=== PATIENT | male | born 1955 | race Caucasian/White ===

== ENCOUNTER 2017-10-10 19:44 | Inpatient (IN) | payer MEDICAID ==
--- NOTE | 2017-10-10 19:56 | ED Physician Chart ---
ED Chief Complaint/HPI - Patient Information Date Seen:: 10/10/17 Time Seen:: 19:40 Chief Complaint:: hematuria History of Present Illness:: Blood was noted in the patient's Iverson bag at 1500 today. Patient had a Iverson catheter placed 5 days ago apparently for inability to urinate secondary to benign prostatic hypertrophy. Historian:: Patient Review:: Nurse's Note Reviewed ED Review of Systems - Review of Systems General/Constitutional: No fever, No chills Skin: No skin lesions Head: No headache Eyes: No loss of vision ENT: No earache Neck: No neck pain, No swelling Cardio Vascular: No chest pain, No palpitations Pulmonary: No SOB GI: No nausea, No vomiting, No diarrhea G/U: Hematuria Musculoskeletal: No bone or joint pain Endocrine: No polyuria Psychiatric: No prior psych history, No depression ED Past Medical History - Past Medical History Past Medical History: HTN, DM, Dyslipidemia, Other (benign prostatic hypertrophy ; hyperlipidemia; chronic low back pain; cardiac arrhythmia) Family History: Heart disease, Diabetes [place] Social History: Non Smoker, Alcohol (occasional alcohol only) Surgical History: other (left hand) Psychiatricy History: None Medication: Reviewed Family Medical History - Family Member Mother Ethnicity: Non- ED Physical Exam - Physical Examination General/Constitutional: Awake, Well-developed, well-nourished, Alert, No distress Head: Atraumatic Eyes: Lids, conjuctiva normal, PERRL Skin: Nl inspection ENMT: External ears, nose nl Neck: No nuchal rigidity Respiratory: Nl effort/Exclusion, Clear to Auscultation Other Cardio Vascular comments:: Irregularly irregular rhythm GI: No tenderness/rebounding/guarding, No organomegaly, No hernia : No CVA tenderness Other comments:: Translucent red urine and Iverson collection bag; clear urine in tubing Extremities: Normal digits & nails Neuro/Psych: Mood normal, No focal deficits Misc: No paraspinal tenderness ED Labs/Radiology/EKG Results - Lab Results Results: Laboratory Results - last 24 hr 10/10/17 10/10/17 10/10/17 20:04 20:04 20:04 WBC 9.1 RBC 3.28 L Hgb 9.7 L Hct 28.7 L MCV 87.7 MCH 29.6 MCHC Differential 33.7 RDW 13.3 Plt Count 441 H MPV 7.1 Neutrophils % 64.4 Lymphocytes % 19.5 L Monocytes % 8.9 Eosinophils % 6.5 H Basophils % 0.7 PT 10.2 INR 0.98 PTT (Actin FS) 24.4 L Sodium 135 L Potassium 4.2 Chloride 104 Carbon Dioxide 23.8 Anion Gap 11.4 BUN 25 Creatinine 1.1 Est GFR ( Amer) > 60.0 Est GFR (Non-Af Amer) > 60.0 BUN/Creatinine Ratio 22.7 Glucose 138 H Calcium 8.7 Urine Source Urine Color Urine Clarity Urine pH Ur Specific [place] Urine Protein Urine Glucose (UA) Urine Ketones Urine Blood Urine Nitrate Urine Bilirubin Urine Urobilinogen Ur Leukocyte Esterase Urine RBC Urine WBC Ur Epithelial Cells Urine Bacteria 10/10/17 20:40 WBC RBC Hgb Hct MCV MCH MCHC Differential RDW Plt Count MPV Neutrophils % Lymphocytes % Monocytes % Eosinophils % Basophils % PT INR PTT (Actin FS) Sodium Potassium Chloride Carbon Dioxide Anion Gap BUN Creatinine Est GFR ( Amer) Est GFR (Non-Af Amer) BUN/Creatinine Ratio Glucose Calcium Urine Source [place] Urine Color RED Urine Clarity CLOUDY Urine pH 6.5 Ur Specific [place] 1.015 Urine Protein 30 H Urine Glucose (UA) NEGATIVE Urine Ketones NEGATIVE Urine Blood LARGE H Urine Nitrate NEGATIVE Urine Bilirubin NEGATIVE Urine Urobilinogen 0.2 Ur Leukocyte Esterase TRACE H Urine RBC >100 H Urine WBC 0-2 Ur Epithelial Cells RARE Urine Bacteria OCCASIONAL - EKG Interpretations Rate & Rhythm: normal sinus rhythm with a rate of 98 [place]: normal Comments:: unifocal PVCs ED Assessment - Assessment General Assessment: Since the urine was clearing (red urine in the bag and clear urine in the tubing) it appears that the hematuria may have been secondary to trauma on the Iverson catheter but patient denies any such trauma ED Septic Shock - . Is Septic Shock (SBP<90, OR Lactate>4 mmol\L) present?: No ED Reassessment (Disposition) - Reassessment Reassessment Condition:: Unchanged - Diagnosis Diagnosis:: Anemia; hematuria; benign prostatic hypertrophy - Patient Disposition Admitted to:: Med/Surg Spoke to:: Rach Novak Admitting Medical Physician:: Rach Novak Condition at Disposition:: Stable, Unchanged
[2017-10-10 20:24] LABS: % BASOPHILS 0.7 % (0.0-2.0); % EOSINOPHILS 6.5 % (0.0-5.0); % LYMPHOCYTES 19.5 % (20.0-50.0); % MONOCYTES 8.9 % (2.0-10.0); % NEUTROPHILS 64.4 % (40.0-80.0); BASOPHILE ABSOLUTE 0.1 Th/cumm (0-0.2); EOSINOPHILE ABSOLUTE 0.6 Th/cmm (0.1-0.4); HEMATOCRIT 28.7 % (41.0-60); HEMOGLOBIN 9.7 gm/dL (12-16); LYMPHOCYTE ABSOLUTE 1.8 Th/cmm (1.5-3.0); MEAN CELL VOLUME 87.7 fl (80-99); MEAN CORPUSCULAR HEMOGLOBIN 29.6 pg (26.0-30.0); MEAN CORPUSCULAR HGB CONC 33.7 pg (28.0-36.0); MEAN PLATELET VOLUME 7.1 fl; MONOCYTE ABSOLUTE 0.8 Th/cmm (0.3-1.0); NEUTROPHILE ABSOLUTE 5.8 Th/cmm (1.8-8.0); PLATELET COUNT 441 Th/cmm (150-400); RED BLOOD COUNT 3.28 Mil/cmm (4.30-5.70); RED CELL DISTRIBUTION WIDTH 13.3 % (11.5-20.0); WHITE BLOOD COUNT 9.1 Th/cmm (4.8-10.8)
[2017-10-10 20:30] LABS: INR 0.98 (0.5-1.4); PROTHROMBIN TIME (TEST) 10.2 SECONDS (9.5-11.5)
[2017-10-10 20:31] LABS: ANION GAP 11.4 (7.0-16.0); BUN - UREA NITROGEN 25 mg/dL (7-25); CALCIUM SERUM 8.7 mg/dL (8.6-10.3); CARBON DIOXIDE 23.8 mEq/L (21.0-31.0); CHLORIDE 104 mEq/L (98-107); CREATININE - SERUM 1.1 mg/dL (0.7-1.3); GFR AFRICAN-AMERICAN > 60.0 ml/min (>90); GFR NON AFRICAN-AMERICAN > 60.0 ml/min; GLUCOSE 138 mg/dL (70-105); POTASSIUM SERUM 4.2 mEq/L (3.5-5.1); SODIUM SERUM 135 mEq/L (136-145)
[2017-10-10 20:50] LABS: URINE MICROSCOPIC INDICATED? YES; URINE SOURCE FOLEY PORT
[2017-10-10 20:58] LABS: URINE BILIRUBIN NEGATIVE (NEGATIVE); URINE BLOOD LARGE (NEGATIVE); URINE GLUCOSE (UA) NEGATIVE (NEGATIVE); URINE KETONE NEGATIVE (NEGATIVE); URINE LEUKOCYTE ESTERASE TRACE (NEGATIVE); URINE NITRATE NEGATIVE (NEGATIVE); URINE PH 6.5 (4.6 - 8.0); URINE PROTEIN 30 mg/dL (NEGATIVE); URINE UROBILINOGEN 0.2 E.U./dL (0.2 - 1.0)
[2017-10-10 21:04] LABS: URINE CLARITY CLOUDY (CLEAR); URINE COLOR RED; URINE RBC >100 /hpf (0-5); URINE WBC 0-2 /hpf (0-5)
[2017-10-10 21:05] LABS: URINE BACTERIA OCCASIONAL /hpf (NONE SEEN); URINE EPITHELIAL CELLS RARE /lpf (FEW)
[2017-10-10] MEDS: Sodium Chloride 0.9% 1,000 ML IV SCH (21:42)
[2017-10-10] MEDS ORDERED: Magnesium Hydroxide (MOM) 30 mL UDC PO PRN (22:48)
[2017-10-11] MEDS: Pantoprazole 40 mg EC Tab PO SCH ×2 (06:45→16:50)
[2017-10-11] MEDS ORDERED: VTE Chemical Prophylaxis Screen/Admission MC PRN (08:00)
[2017-10-11] MEDS: Multivitamin w/ Minerals Tab PO SCH (08:39)
[2017-10-11] MEDS: Sodium Chloride 0.9% 1,000 ML IV SCH ×2 (08:40→22:22)
--- NOTE | 2017-10-11 18:21 | Consultation ---
DATE OF CONSULTATION: 10/11/2017 REASON FOR CONSULTATION: Seen for urinary retention and hematuria. HISTORY OF PRESENT ILLNESS: The patient is a 62-year-old who developed retention after hip replacement surgery a week ago. Gallegos was removed and 2 days later had to be reinserted because of recurrent retention. This was probably compounded due to the fact that he had constipation at that time as well. He was discharged with the Gallegos catheter to a halfway for recovery and developed gross hematuria for which he was returned to the hospital yesterday. Hematuria has since subsided on its own. The patient admits to having significant nocturia, slow stream and urgency before this occurrence for the last several months that was never addressed or treated. No previous prostate, bladder, or kidney operations. No hematuria or infections. No history of cancer. PAST MEDICAL HISTORY: Positive for diabetes, hypertension, and hyperlipidemia. He also has a history of chronic low back pain. There is a history of cardiac arrhythmias as well. SOCIAL HISTORY: Denies tobacco, alcohol, or drug abuse. SURGICAL HISTORY: Right foot operation from an injury and now the right hip replacement. HOME MEDICATIONS: Preadmission medications: Tylenol, aspirin, Celebrex, Colace, Neurontin, milk of magnesia, multivitamins, OxyContin, Protonix, Xarelto, anticoagulant Flomax, and Restoril. ALLERGIES: None. REVIEW OF SYSTEMS: No fever, headache, weight loss, or seizures. Denies chest pain, coughing, or shortness of breath. No abdominal pain, vomiting, or diarrhea. Gross hematuria has resolved. Right hip wound post surgical and healing. PHYSICAL EXAMINATION: GENERAL: On exam, he is awake, alert, oriented, healthy looking gentleman. VITAL SIGNS: Temperature 98.2, heart rate 78, blood pressure 105/44. ABDOMEN: Soft, nontender, nondistended. No organomegaly, mass, or hernia. GENITALIA: Normal male. Scrotal contents normal. Penis uncircumcised. Gallegos catheter draining clear urine. RECTAL: Prostate is high to reach, but enlarged about 40 g, smooth, benign and nontender. No nodules. EXTREMITIES: No edema or lymphadenopathy. Right hip wound bandaged. HEART: Sounds normal, regular rhythm, no murmur. LUNGS: Clear to auscultation. No rales or rhonchi. HEAD AND NECK: Normocephalic. Trachea central. Pupils equal and reactive. No jaundice. Thyroid and lymph nodes not palpable. Carotid bruit absent. LABORATORY DATA: White count 9.1, hemoglobin 9.7, which seems to be stable. Platelets adequate. PT/INR 0.9. Sodium, potassium 135 and 4.2 respectively. BUN 25, creatinine 1.1. Urine showed large amount of blood as expected. There are no other studies in the chart at this time. IMPRESSION: Benign prostatic hypertrophy causing recurrent urinary retention. Gallegos catheter related hematuria. This is aggravated by Xarelto and aspirin. Recommend Gallegos catheter care with every day to 2 days irrigation with normal saline until clear. Catheter to be changed every 3-4 weeks. Once the patient is fit for surgery and his anticoagulant can be held, he should have a cystoscopy and possible TURP. This was discussed and explained to him in great details. He does mention the problem of erectile dysfunction as well, which was noted and will be addressed at a later date. I explained to him that these 2 problems are not connected in any way. JOB# [id number]
--- NOTE | 2017-10-11 22:05 | History & Physical ---
ADMIT DATE: 10/11/2017 HISTORY OF PRESENT ILLNESS: The patient came from [facility], essentially had blood in the urine. The patient had hematuria and known to have a history of prostate hypertrophy. The patient is being admitted at [facility] for rehabilitation. REVIEW OF SYSTEMS: Essentially negative except for the body aches and pains as well as hematuria. PAST MEDICAL HISTORY: Unremarkable. PHYSICAL EXAMINATION: GENERAL: Alert and oriented male patient. VITAL SIGNS: As noted in chart. HEAD: Normal. ENT: Normal. NECK: Supple, nontender. LUNGS: Clear. CARDIOVASCULAR SYSTEM: S1, S2 heard. ABDOMEN: Soft. Bowel sounds are heard. CENTRAL NERVOUS SYSTEM: Grossly normal. Hematuria was noted. DIAGNOSES: Anemia, acute hematuria, benign enlargement of the prostate, history of diabetes, history of hypertension, hyperlipidemia, chronic back pain and history of cardiac arrhythmia as well. The patient was on Xarelto, which was taken off and then I have trimmer tailer to see the patient as well as urologist to see the patient. I will follow the patient. JOB# [id number]
[2017-10-12] MEDS ORDERED: Hydrocodone/APAP 10 mg/325 mg Tab PO PRN (02:08)
[2017-10-12] MEDS: Sodium Chloride 0.9% 1,000 ML IV SCH (05:03)
[2017-10-12] MEDS: Pantoprazole 40 mg EC Tab PO SCH ×2 (07:03→16:25)
[2017-10-12] MEDS: Multivitamin w/ Minerals Tab PO SCH (09:58)
[2017-10-12] MEDS ORDERED: Probiotic Screen MC PRN (11:26)
[2017-10-13] MEDS ORDERED: Lactobacillus Rhamnosus GG 15 Billion CFU CAP.SPRINK PO SCH (09:00)
--- NOTE | 2017-10-20 17:36 | Discharge Summary ---
DATE OF DISCHARGE: 10/12/2017 COURSE OF TREATMENT: This is a 62-year-old male who was brought in from a custodial facility through the Emergency Room due to bloody urine noted in the Gallegos bag. The patient is known to have benign prostatic hypertrophy and a Gallegos catheter was placed 5 days prior to the patient's arrival to the Emergency Room. The patient was then admitted to the [facility] where in an urologist saw the patient. Per urology's impression, the hematuria is due to Gallegos catheter insertion and also secondary to benign prostatic hypertrophy causing urinary retention. Otherwise, the patient was discharged back to custodial facility for Dr. Novak to follow. Medication reconciliation done accordingly. [facility]# [id number]
== END 2017-10-12 20:50 | DRG 466 ==
LOC: ER 19:44 → MSI 21:15
PROVIDERS: ADMIT Internal Medicine; ATTEND Internal Medicine
DX: T83.83XA Hemorrhage due to genitourinary prosthetic devices, implants and grafts, initial encounter (principal); D68.32 Hemorrhagic disorder due to extrinsic circulating anticoagulants; D64.9 Anemia, unspecified; E11.9 Type 2 diabetes mellitus without complications; E78.5 Hyperlipidemia, unspecified; G89.29 Other chronic pain; T45.515A Adverse effect of anticoagulants, initial encounter; I10 Essential (primary) hypertension; I49.9 Cardiac arrhythmia, unspecified; N40.1 Benign prostatic hyperplasia with lower urinary tract symptoms; M54.5 Low back pain; Z96.641 Presence of right artificial hip joint; Y84.6 Urinary catheterization as the cause of abnormal reaction of the patient, or of later complication, without mention of misadventure at the time of the procedure; R33.8 Other retention of urine; Z83.3 Family history of diabetes mellitus; Z82.49 Family history of ischemic heart disease and other diseases of the circulatory system; Z79.82 Long term (current) use of aspirin; Y92.89 Other specified places as the place of occurrence of the external cause
CPT/HCPCS: 36415-UA; 80048-TC; 81001-TC; 85025-TC; 85610-TC; 85730-TC; 93005; J0696; J7030; X3904; Z7610